=== PATIENT | male | born 1995 | race Two or more races ===

== ENCOUNTER 2017-01-18 23:39 | Emergency (ER) | payer MEDICAID, OTHER ==
[2017-01-19] MEDS ORDERED: HYDROCODONE/ACETAMINOPHEN 5-325 MG TABLET PO ONE (01:46)
--- NOTE | 2017-01-19 02:16 | ER Document Report ---
ED Extremity Problem, Upper - General Chief Complaint: Elbow Injury Stated Complaint: POSSIBLE ELBOW DISLOCATION Mode of Arrival: Ambulatory Information source: Patient TRAVEL OUTSIDE OF THE [place] IN LAST 30 DAYS: No - HPI Notes: Patient states he was wrestling with his brother earlier today when he was slammed to the ground and injured his left elbow. States that something popped and he felt like his elbow may have been dislocated. He states that he felt like he was able to get his elbow back into place. He continues to have pain in the left elbow. He denies any numbness tingling or weakness. He states that he has limited range of motion of left elbow due to pain. No fevers. No lacerations. No nausea, vomiting, diarrhea. No chest pain or shortness breath. He denies any other complaints at this moment. - Related Data Allergies/Adverse Reactions: No Known Allergies Allergy (Unverified 12/21/12 20:24) Past Medical History - Social History Smoking Status: Unknown if Ever Smoked Family History: None Patient has suicidal ideation: No Patient has homicidal ideation: No Pulmonary Medical History: Reports: Hx Asthma Renal/ Medical History: Denies: Hx Peritoneal Dialysis - Immunizations Immunizations up to date: Yes Hx Diphtheria, Pertussis, Tetanus Vaccination: Yes Review of Systems - Review of Systems -: Yes All other systems reviewed and negative Physical Exam - Vital signs Vitals: Temp Pulse Resp BP Pulse Ox 98.1 F 71 20 122/76 100 01/18/17 23:54 01/18/17 23:54 01/18/17 23:54 01/18/17 23:54 01/18/17 23:54 - Notes Notes: GENERAL: alert, cooperative, nontoxic, no distress. HEAD: normocephalic, atraumatic EYES: conjunctiva pink without discharge, no external redness or swelling. EARS: no external swelling, no external redness NOSE: atraumatic, no external swelling MOUTH/THROAT: mucous membranes moist and pink, posterior pharynx without erythema, swelling, exudate. No trismus or drooling. NECK: soft, supple, full range of motion, no meningismus. CHEST: no distress, lungs clear and equal throughout. No wheezing, rales, rhonchi. CARDIAC: regular rate and rhythm, no murmur, normal capillary refill, normal pulses. No peripheral edema noted. ABDOMEN: Soft, nontender. BACK: full range of motion, no CVA tenderness. NEURO: alert and oriented 3, no focal deficits, full range of motion of all extremities. PYSCH: appropriate mood, affect. Patient is cooperative. SKIN: pink, warm, dry, no rash. - Extremities Notes: Tenderness to palpation of the left elbow. Slight limited flexion and extension of the left elbow due to pain. No obvious deformity. Normal pulse and sensation distally. Minimal social exams unremarkable. Course - Re-evaluation Re-evalutation: 01/19/17 02:21 Patient is nontoxic and stable vitals. Patient did have an ulnar coronoid fracture. Patient's are grossly intact. Patient be placed in a sling for comfort. Follow-up with orthopedic next week. Follow up sooner for increased pain, fever, numbness, tingling, weakness or any further concerns. Compartments are soft at this time. Patient is neurovascularly intact. The patient is noted to have elevated blood pressure during today's emergency department visit. The patient was informed of this finding. The patient was instructed that this may be related to pre-hypertension and requires further evaluation with a primary care provider. The patient has no hypertensive symptoms at this time. The patient's emergency department workup and current diagnosis were explained to the patient and or family. Follow-up instructions were provided. Medications if prescribed were discussed. Instructions for when to return to the emergency department including specific worrisome symptoms were discussed with the patient and/or family. - Vital Signs Vital signs: Temp Pulse Resp BP Pulse Ox 98.1 F 71 20 122/76 100 01/18/17 23:54 01/18/17 23:54 01/18/17 23:54 01/18/17 23:54 01/18/17 23:54 - Diagnostic Test Radiology reviewed: Image reviewed, Reports reviewed - Or coronoid avulsion fracture Procedures - Additional Procedures sling Notes: 01/19/17 02:19 Sling applied to the left arm. Joint well aligned. Normal neurovascular exam distally. Discharge - Discharge Condition: Stable Disposition: HOME, SELF-CARE Instructions: Fracture ([facility]) Additional Instructions: Wear sling until you follow up with or throat. Ice or elbow. Follow up with or so next week. Take medications as prescribed. Follow-up sooner for increased pain, fever, numbness, tingling, weakness, any further concerns. Your blood pressure was elevated during today's visit. Have this rechecked with your doctor. The medication you were prescribed today may cause drowsiness. Do not drive or operate heavy machinery while taking this medication. Prescriptions: Hydrocodone/Acetaminophen [[place] 5-325 mg Tablet] 1 tab PO Q4 PRN #15 tablet PRN Reason: Forms: Elevated Blood Pressure Referrals: DARRYL CALDERON DO [ACTIVE STAFF] - Follow up as needed
[2017-01-19 04:02] VITALS: BP 118/72
== END 2017-01-19 04:03 | disposition home or self-care (01) ==
LOC: ER 23:39
DX: S52.045A Nondisplaced fracture of coronoid process of left ulna, initial encounter for closed fracture (principal); R03.0 Elevated blood-pressure reading, without diagnosis of hypertension; X58.XXXA Exposure to other specified factors, initial encounter; Y93.83 Activity, rough housing and horseplay
CPT/HCPCS: 99283

== ENCOUNTER 2017-10-16 10:40 | Emergency (ER) | payer MEDICAID, OTHER ==
--- NOTE | 2017-10-16 11:44 | ER Document Report ---
HPI - HPI Patient complains to provider of: left ear pain Pain Level: 3 Context: 22 yo male with left ear pain x 1 day. + URI symptoms last week. no fever Associated Symptoms: None Exacerbated by: Denies Relieved by: Denies Similar symptoms previously: No Recently seen / treated by doctor: No - ROS Systems Reviewed and Negative: Yes All other systems reviewed and negative - EENT EENT: REPORTS: Ear Pain Past Medical History - General Information source: Patient - Social History Smoking Status: Current Every Day Smoker Chew tobacco use (# tins/day): No Frequency of alcohol use: Heavy Drug Abuse: Marijuana Family History: None Patient has suicidal ideation: No Patient has homicidal ideation: No - Medical History Medical History: Negative Pulmonary Medical History: Reports: Hx Asthma Renal/ Medical History: Denies: Hx Peritoneal Dialysis - Immunizations Immunizations up to date: Yes Hx Diphtheria, Pertussis, Tetanus Vaccination: Yes Vertical Provider Document - CONSTITUTIONAL Agree With Documented VS: Yes Exam Limitations: No Limitations - INFECTION CONTROL TRAVEL OUTSIDE OF THE [place] IN LAST 30 DAYS: No - HEENT HEENT: Atraumatic, Tympanic Membrane Red - left - NECK Neck: Normal Inspection, Supple - RESPIRATORY Respiratory: Breath Sounds Normal, No Respiratory Distress - CARDIOVASCULAR Cardiovascular: Regular Rate, Regular Rhythm - NEURO Level of Consciousness: Awake, Alert, Appropriate - DERM Integumentary: Warm, Dry Discharge - Discharge Clinical Impression: Acute left otitis media Condition: Stable Disposition: HOME, SELF-CARE Instructions: Otitis Media ([facility]), Antibiotic Therapy ([facility]), Ibuprofen (General ) ([facility]) Additional Instructions: take meds as prescribed follow up with primary care if symptoms persist Prescriptions: Amoxicillin 500 mg PO TID #21 tablet Ibuprofen [Motrin 800 Mg Tablet] 800 mg PO Q6H #20 tablet Forms: Return to Work
== END 2017-10-16 11:45 | disposition home or self-care (01) ==
LOC: ER 10:40
DX: H66.92 Otitis media, unspecified, left ear (principal); H92.02 Otalgia, left ear; J45.909 Unspecified asthma, uncomplicated; F17.200 Nicotine dependence, unspecified, uncomplicated; F12.10 Cannabis abuse, uncomplicated
CPT/HCPCS: 99282

== ENCOUNTER 2018-04-18 13:15 | Emergency (ER) | payer OTHER ==
[2018-04-18] MEDS ORDERED: FAMOTIDINE 20 MG TABLET PO ONE (13:25)
[2018-04-18] MEDS ORDERED: METHYLPREDNISOLONE INJ 125 MG/2 ML SDV IV ONE (13:25)
[2018-04-18] MEDS ORDERED: DIPHENHYDRAMINE HCL 50 MG/ML VIAL IV ONE (13:25)
[2018-04-18] MEDS ORDERED: FAMOTIDINE INJ/PF 20 MG/2 ML SDV IV ONE (13:28)
--- NOTE | 2018-04-18 13:31 | ER Document Report ---
HPI - HPI Pain Level: 3 Notes: Patient is a 22-year-old male no significant past medical history who presents to the ED complaining of a wasp vs hornet sting to his upper lip about 1-1.5 hours ago. Patient states that he had initial swelling and took Benadryl. Patient states that his symptoms have improved, but does continue to have some swelling in his lip. Patient states that he does not have any severe allergy aside from localized swelling to the and wasp stings. Patient states that he is still eating and drinking without any difficulties. He has not had any trouble breathing or swallowing. Denies any drug allergies. No other concerns or complaints. Denies any headache, fever, head injury, neck pain, changes in vision/speech/mentation/hearing, swelling of tongue/throat, drooling, hoarseness , URI, sore throat, chest pain, palpitations, syncope, cough, shortness of breath, wheeze, dyspnea, abdominal pain, nausea/vomiting/diarrhea, urinary retention, dysuria, hematuria, loss of control of bowel or bladder, numbness/ tingling, saddle anesthesia, muscle paralysis/weakness, or rash. - ROS Systems Reviewed and Negative: Yes All other systems reviewed and negative Past Medical History - Social History Smoking Status: Current Every Day Smoker Family History: None Pulmonary Medical History: Reports: Hx Asthma Renal/ Medical History: Denies: Hx Peritoneal Dialysis - Immunizations Immunizations up to date: Yes Hx Diphtheria, Pertussis, Tetanus Vaccination: Yes Vertical Provider Document - CONSTITUTIONAL Agree With Documented VS: Yes Notes: PHYSICAL EXAMINATION: GENERAL: Well-appearing, well-nourished and in no acute distress. A&Ox4. Answers questions appropriately. Moves comfortably w/o notable distress HEAD: Atraumatic, normocephalic. EYES: Pupils equal round and reactive to light, extraocular movements intact, sclera anicteric, conjunctiva are normal. ENT: EAC clear b/l. TM's intact b/l without erythema, fluid, or perforation. Nares patent and with clear discharge. oropharynx no erythema without exudates. no tonsilar hypertrophy without erythema or exudate. No palatine shift. Uvula midline. No tongue protrusion. No drooling, hoarseness, or airway compromise. Moist mucous membranes. No sinus tenderness. + upper lip swelling (improved from pt's picture he brought with him during initial swelling prior to benadryl). No swelling of tongue/throat. NECK: Normal range of motion, supple without lymphadenopathy. No rigidity/ meningismus. LUNGS: Breath sounds clear to auscultation bilaterally and equal. No wheezes rales or rhonchi. No retractions HEART: Regular rate and rhythm without murmurs, rubs, gallops. NEUROLOGICAL: Normal speech, normal gait. PSYCH: Normal mood, normal affect. SKIN: Warm, Dry, normal turgor, no rashes or lesions noted. - INFECTION CONTROL TRAVEL OUTSIDE OF THE [place] IN LAST 30 DAYS: No Course - Re-evaluation Re-evalutation: 04/18/18 13:31 We will give him solumedrol 125, benadryl 25, and pepcid 20mg IV and monitor for another hour. 04/18/18 14:48 Patient is an afebrile, well-hydrated, 22-year-old male who presents to the ED with a hornet/wasp sting to the upper lip with associated swelling. Vitals are acceptable without any significant tachycardia, tachypnea, or hypoxia. PE is otherwise unremarkable. Patient was given Solu-Medrol, Benadryl, and Pepcid IV. Patient states that he is feeling much better and would like to go home. No other labs or imaging warranted at this time based on H&P. Patient to continue Benadryl and Pepcid at home. Low suspicion for any sepsis, meningitis , severe dehydration, respiratory compromise, or other systemic emergent condition at this time. Patient is aware that condition can change from initial presentation and he needs to monitor symptoms closely and seek medical attention with any acute changes. Conservative measures otherwise for symptoms. Recheck with your PCM in 2-3 days. Return to the ED with any worsening/concerning symptoms otherwise as reviewed in discharge. Patient is in agreement. - Vital Signs Vital signs: Temp Pulse Resp BP Pulse Ox 97.4 F 81 18 125/66 99 04/18/18 13:18 04/18/18 13:18 18 13:18 04/18/18 13:18 04/18/18 13:18 Discharge - Discharge Clinical Impression: Insect sting Qualifiers: Encounter type: initial encounter Injury intent: accidental or unintentional Qualified Code(s): T63.481A - Toxic effect of venom of other arthropod, accidental (unintentional), initial encounter Condition: Stable Disposition: HOME, SELF-CARE Additional Instructions: Keep the skin clean Wash with soap and water Tylenol/ibuprofen if needed Take medication as directed Monitor for any worsening symptoms Recheck with your PCM in 2-3 days Return to the ED with any worsening symptoms and/or development of fever, headache, chest pain, palpitations, syncope, shortness of breath, trouble breathing, abdominal pain, n/v/d, abscess, purulent discharge, red streaks, worsening swelling, or other worsening symptoms that are concerning to you. Prescriptions: Prednisone [Deltasone 20 mg Tablet] 3 tab PO DAILY 3 Days tablet Forms: Smoking Cessation Education Referrals: CLAYTON MACKENZIE MD [Primary Care Provider] - 04/21/18
[2018-04-18 15:13] VITALS: BP 112/54
== END 2018-04-18 15:14 | disposition home or self-care (01) ==
LOC: ER 13:15
DX: T63.481A Toxic effect of venom of other arthropod, accidental (unintentional), initial encounter (principal); R22.0 Localized swelling, mass and lump, head; F17.200 Nicotine dependence, unspecified, uncomplicated; J45.909 Unspecified asthma, uncomplicated; X58.XXXA Exposure to other specified factors, initial encounter
CPT/HCPCS: 99282; 96374; 96375; J1200; J2930; S0028

== ENCOUNTER 2019-01-14 22:54 | Emergency (ER) | payer OTHER ==
[2019-01-14 23:15] VITALS: BP 114/60
== END 2019-01-15 01:52 | disposition left against medical advice (07) ==
LOC: ER 22:54
DX: Z53.21 Procedure and treatment not carried out due to patient leaving prior to being seen by health care provider (principal)

== ENCOUNTER 2019-01-15 20:48 | Emergency (ER) | payer OTHER ==
--- NOTE | 2019-01-15 22:01 | ER Document Report ---
ED Medical Screen (RME) - General Chief Complaint: Flank Pain Stated Complaint: ABDOMINAL PAIN Time Seen by Provider: 01/15/19 21:52 Primary Care Provider: CLAYTON MACKENZIE MD [Primary Care Provider] - Follow up as needed Notes: 23-year-old male with chief complaint of abdominal pain, symptoms have been present for the past 4 days, pain located mainly on the right side, also radiates to the upper left. Denies nausea, vomiting, fever, flank pain. Just went to [place], had a CAT scan within the past 24 hours which was normal. Denies any surgeries. TRAVEL OUTSIDE OF THE [place] IN LAST 30 DAYS: No - Related Data Allergies/Adverse Reactions: No Known Allergies Allergy (Verified 01/14/19 23:13) Past Medical History - Social History Chew tobacco use (# tins/day): No Frequency of alcohol use: Occasional Drug Abuse: None Pulmonary Medical History: Reports: Hx Asthma Renal/ Medical History: Denies: Hx Peritoneal Dialysis - Immunizations Immunizations up to date: Yes Hx Diphtheria, Pertussis, Tetanus Vaccination: Yes Physical Exam - Abdominal Tenderness: Other - When I press in the upper abdomen he states that his symptoms feel improved. No noted pain on palpation. Unremarkable exam. Exam limited by sitting position. Course - Re-evaluation Re-evalutation: I have greeted and performed a rapid initial assessment of this patient. A comprehensive ED assessment and evaluation of the patient, analysis of test results and completion of the medical decision making process will be conducted by additional ED providers. Doctor's Discharge - Discharge Referrals: CLAYTON MACKENZIE MD [Primary Care Provider] - Follow up as needed
[2019-01-15 23:06] LABS: ABSOLUTE BASOPHILS # (AUTO) 0.1 10^3/uL (0.0-0.2); ABSOLUTE EOSINOPHILS # (AUTO) 0.4 10^3/uL (0.0-0.6); ABSOLUTE LYMPHOCYTES (AUTO) 2.4 10^3/uL (0.5-4.7); ABSOLUTE MONOCYTES (AUTO) 0.8 10^3/uL (0.1-1.4); ABSOLUTE NEUT (AUTO) 5.2 10^3/uL (1.7-8.2); BASOPHILS % (AUTO) 0.7 % (0-2); EOSINOPHILS % (AUTO) 4.7 % (0-6); HEMATOCRIT 46.2 % (37.9-51.0); LYMPHOCYTES % (AUTO) 26.9 % (13-45); MEAN CORPUSCULAR HEMOGLOBIN 32.2 pg (27.0-33.4); MEAN CORPUSCULAR HGB CONC 34.8 g/dL (32.0-36.0); MEAN CORPUSCULAR VOLUME 93 fl (80-97); MONOCYTES % (AUTO) 9.2 % (3-13); PLATELET COUNT 209 10^3/uL (150-450); RED BLOOD COUNT 4.99 10^6/uL (4.35-5.55); SEGMENTED NEUTROPHILS % (AUTO) 58.5 % (42-78); TOTAL CELLS COUNTED % (AUTO) 100 %; WHITE BLOOD COUNT 8.8 10^3/uL (4.0-10.5)
[2019-01-15 23:18] LABS: ALANINE AMINOTRANSFERASE 25 U/L (21-72); ALBUMIN 4.1 g/dL (3.5-5.0); ALKALINE PHOSPHATASE 90 U/L (38-126); ANION GAP 8 (5-19); ASPARTATE AMINO TRANSFERASE 26 U/L (17-59); BILIRUBIN,DIRECT 0.2 mg/dL (0.0-0.4); BILIRUBIN,TOTAL 0.4 mg/dL (0.2-1.3); BLOOD UREA NITROGEN 17 mg/dL (7-20); CALCIUM 9.6 mg/dL (8.4-10.2); CARBON DIOXIDE 27 mmol/L (22-30); CHLORIDE 105 mmol/L (98-107); GLUCOSE 91 mg/dL (75-110); LIPASE 43.5 U/L (23-300); POTASSIUM 4.7 mmol/L (3.6-5.0); TOTAL PROTEIN 6.9 g/dL (6.3-8.2)
[2019-01-15 23:22] LABS: APPEARANCE,URINE CLEAR; BILIRUBIN,URINE NEGATIVE (NEGATIVE); COLOR,URINE YELLOW; GLUCOSE, URINE NEGATIVE (NEGATIVE); KETONES,URINE NEGATIVE (NEGATIVE); LEUKOCYTE ESTERASE,URINE NEGATIVE (NEGATIVE); NITRITE,URINE NEGATIVE (NEGATIVE); PROTEIN,URINE NEGATIVE (NEGATIVE); URINE SPECIFIC GRAVITY 1.015; UROBILINOGEN,URINE NEGATIVE mg/dL (<2.0)
[2019-01-15] MEDS ORDERED: NORMAL SALINE 1000 ML 1,000 ML IV ONE (23:27)
[2019-01-15] MEDS ORDERED: KETOROLAC TROMETHAMINE 60 MG/2 ML SDV IM ONE (23:55)
[2019-01-15] MEDS ORDERED: DICYCLOMINE HCL INJ 20 MG/2 ML AMPULE IM ONE (23:55)
--- NOTE | 2019-01-16 | ER Document Report ---
ED General - General Chief Complaint: Flank Pain Stated Complaint: ABDOMINAL PAIN Time Seen by Provider: 01/15/19 21:52 Primary Care Provider: JANUSZ GOSS MD [ACTIVE STAFF] - Follow up in 3-5 days (gastroenterology ) CLAYTON MACKENZIE MD [Primary Care Provider] - Follow up in 3-5 days Notes: Patient is a 23 year old male that presents to the emergency department for chief complaint of right-sided abdominal pain. Patient reports his been having this pain on and off for the past 4 days, he says started on the right lower abdomen, working towards the right upper quadrant, then to the left side. He was seen at another institution emergency department earlier today, he states he had a CAT scan of his abdomen, as well as blood work, which she was told was all normal but he wanted to come here to be reevaluated. Denies any nausea, vomiting, diarrhea, constipation. Denies having any dysuria, hematuria. He currently rates his pain as a 8 out of 10 describes as an aching pain, but it is worse with walking. Past Medical History: Denies chronic medical conditions Past Surgical History: Denies surgical history Social History: Admits to smoking cigarettes and occasional alcohol use and occasional marijuana use. Family History: Reviewed and noncontributory for presenting illness Allergies: Reviewed, see documented allergy list. REVIEW OF SYSTEMS: Other than noted above, the 12 point review of systems was reviewed with the patient and were negative, all pertinent findings are included in the HPI. PHYSICAL EXAMINATION: Vital signs reviewed, nursing noted reviewed. GENERAL: Well-appearing, well-nourished and in no acute distress. HEAD: Atraumatic, normocephalic. EYES: Eyes appear normal, extraocular movements intact, sclera anicteric, conjunctiva are normal. ENT: nares patent, oropharynx clear without exudates. Moist mucous membranes. NECK: Normal range of motion, supple without lymphadenopathy LUNGS: Breath sounds clear to auscultation bilaterally and equal. No wheezes rales or rhonchi. HEART: Regular rate and rhythm without murmurs ABDOMEN: Soft, mild right upper quadrant tenderness to palpation, no right lower quadrant tenderness or left upper quadrant tenderness with palpation on my exam, negative McBurney's point tenderness, normoactive bowel sounds. No rebound, guarding, or rigidity. No masses appreciated. EXTREMITIES: Nontender, good range of motion, no pitting or edema. NEUROLOGICAL: No focal neurological deficits. Moves all extremities spontaneously Motor and sensory grossly intact on exam. PSYCH: Normal mood, normal affect. SKIN: Warm, Dry, normal turgor, no rashes or lesions noted on exposed skin TRAVEL OUTSIDE OF THE [place] IN LAST 30 DAYS: No - Related Data Allergies/Adverse Reactions: No Known Allergies Allergy (Verified 01/14/19 23:13) Past Medical History - Social History Smoking Status: Current Every Day Smoker Chew tobacco use (# tins/day): No Frequency of alcohol use: Occasional Drug Abuse: None Family History: None Patient has suicidal ideation: No Patient has homicidal ideation: No Pulmonary Medical History: Reports: Hx Asthma Renal/ Medical History: Denies: Hx Peritoneal Dialysis - Immunizations Immunizations up to date: Yes Hx Diphtheria, Pertussis, Tetanus Vaccination: Yes Physical Exam - Vital signs Vitals: Temp Pulse Resp BP Pulse Ox 98.1 F 55 L 14 111/70 100 01/16/19 01:19 01/16/19 01:19 01/16/19 01:19 01/16/19 01:19 01/16/19 01:19 Course - Re-evaluation Re-evalutation: Patient seen and examined vital signs reviewed. Laboratory data and/or imaging were ordered as appropriate for the patient's presenting symptoms and complaint, with consideration of any critical or life threatening conditions that may be associated with their obtained history and exam as noted above. Patient was treated with IM Bentyl and Toradol Results were reviewed when available and demonstrated unremarkable blood work and urinalysis The patient was re-evaluated and was stable, given the patient had recent CT imaging earlier in the day, that was reportedly negative, do not feel compelled to reimage this patient, I did do bedside ultrasound as noted, which was negative for any concerning findings of the gallbladder or liver, no hydronephrosis of the kidney Evaluation was most consistent with nonspecific abdominal pain, possible musculoskeletal, versus bowel spasm, will give the patient a prescription for Bentyl and have him follow-up with gastroenterology. Results were discussed with the patient at this point, after careful consideration I feel that that patient can be discharged from the emergency department, the patient was educated treatments and reasons to return to the emergency department based on their presumed diagnosis as noted above, they were advised to followup with a primary care physician in 2-3 days. Patient was agreeable to plan of care. *Note is created using voice recognition software and may contain spelling, syntax or grammatical errors. Laboratory 01/15/19 01/15/19 01/15/19 22:54 22:54 22:54 WBC 8.8 RBC 4.99 Hgb 16.0 Hct 46.2 MCV 93 MCH 32.2 MCHC 34.8 RDW 14.0 Plt Count 209 Seg Neutrophils % 58.5 Lymphocytes % 26.9 Monocytes % 9.2 Eosinophils % 4.7 Basophils % 0.7 Absolute Neutrophils 5.2 Absolute Lymphocytes 2.4 Absolute Monocytes 0.8 Absolute Eosinophils 0.4 Absolute Basophils 0.1 Sodium 140.0 Potassium 4.7 Chloride 105 Carbon Dioxide 27 Anion Gap 8 BUN 17 Creatinine 0.95 Est GFR ( Amer) > 60 Est GFR (Non-Af Amer) > 60 Glucose 91 Calcium 9.6 Total Bilirubin 0.4 Direct Bilirubin 0.2 Neonat Total Bilirubin Not Reportable Neonat Direct Bilirubin Not Reportable Neonat Indirect Bili Not Reportable AST 26 ALT 25 Alkaline Phosphatase 90 Total Protein 6.9 Albumin 4.1 Lipase 43.5 Urine Color YELLOW Urine Appearance CLEAR Urine pH 6.0 Ur Specific [place] 1.015 Urine Protein NEGATIVE Urine Glucose (UA) NEGATIVE Urine Ketones NEGATIVE Urine Blood NEGATIVE Urine Nitrite NEGATIVE Urine Bilirubin NEGATIVE Urine Urobilinogen NEGATIVE Ur Leukocyte Esterase NEGATIVE Urine WBC (Auto) 0 Urine RBC (Auto) 0 Urine Mucus (Auto) RARE Urine Ascorbic Acid NEGATIVE - Vital Signs Vital signs: Temp Pulse Resp BP Pulse Ox 98.1 F 55 L 14 111/70 100 01/16/19 01:19 01/16/19 01:19 01/16/19 01:19 01/16/19 01:19 01/16/19 01:19 - Laboratory Result Diagrams: 01/15/19 22:54 01/15/19 22:54 Procedures - Ultrasound/Bedside Ultrasound/Bedside Notes: BEDSIDE US LIMITED ABDOMINAL EXAM: Indication: Right upper quadrant abdominal pain Findings: Normal right upper quadrant ultrasound, liver appeared normal, no hydronephrosis of the kidney, gallbladder appeared normal in size. IVC was patent. No concerning findings. Images placed in the chart Discharge - Discharge Clinical Impression: Abdominal pain Qualifiers: Abdominal location: unspecified location Qualified Code(s): R10.9 - Unspecified abdominal pain Condition: Stable Disposition: HOME, SELF-CARE Instructions: Abdominal Pain ([facility]) Additional Instructions: Please return to the emergency department if you have any worsening, or concern of your symptoms. Please return to the emergency department if you develop chest pain, difficulty breathing, severe abdominal pain, or ongoing vomiting. Please follow-up with your primary care physician in 2-3 days and any other recommended physicians. If prescribed, take all medications as directed. If you have any questions or concerns do not hesitate to return the emergency department for evaluation. Prescriptions: Dicyclomine HCl [Bentyl 20 mg Tablet] 20 mg PO Q6H PRN #30 tablet PRN Reason: Abdominal Cramping Referrals: CLAYTON MACKENZIE MD [Primary Care Provider] - Follow up in 3-5 days JANUSZ GOSS MD [ACTIVE STAFF] - Follow up in 3-5 days (gastroenterology )
[2019-01-16 01:20] VITALS: BP 111/70
== END 2019-01-16 01:20 | disposition home or self-care (01) ==
LOC: ER 20:48
DX: R10.9 Unspecified abdominal pain (principal); F17.210 Nicotine dependence, cigarettes, uncomplicated
CPT/HCPCS: 99284; 96372; 36415; 83690; 85025; 80053; 81001; J0500; J1885

== ENCOUNTER 2019-01-23 10:10 | Emergency (ER) | payer OTHER ==
--- NOTE | 2019-01-23 10:25 | ER Document Report ---
ED Medical Screen (RME) - General Chief Complaint: Possible Kidney Stone Stated Complaint: FLANK PAIN Time Seen by Provider: 01/23/19 10:24 Primary Care Provider: CLAYTON MACKENZIE MD [Primary Care Provider] - Follow up as needed Mode of Arrival: Ambulatory Information source: Patient Notes: 23-year-old male presents to ED for right flank pain that is getting worse now is around to the front. He states his pain is also hurts. He states he is having frequent small amounts of urine and having sweats due to the pain. He states it feels like he is having a kidney stone. He states he does have some nausea. States he was here recently and sent home with Toradol and Bentyl which is not helping. Patient is alert oriented respirations regular and unlabored. He does have tenderness to the right flank. I have greeted and performed a rapid initial assessment of this patient. A comprehensive ED assessment and evaluation of the patient, analysis of test results and completion of medical decision making process will be conducted by an additional ED providers. TRAVEL OUTSIDE OF THE [place] IN LAST 30 DAYS: No - Related Data Allergies/Adverse Reactions: No Known Allergies Allergy (Verified 01/23/19 10:14) Past Medical History - Social History Frequency of alcohol use: Social Drug Abuse: Marijuana, Other Pulmonary Medical History: Reports: Hx Asthma Renal/ Medical History: Denies: Hx Peritoneal Dialysis - Immunizations Immunizations up to date: Yes Hx Diphtheria, Pertussis, Tetanus Vaccination: Yes Physical Exam - Vital signs Vitals: Temp Pulse Resp BP Pulse Ox 98.0 F 65 16 136/90 H 100 01/23/19 10:14 01/23/19 10:14 01/23/19 10:14 01/23/19 10:14 01/23/19 10:14 Course - Vital Signs Vital signs: Temp Pulse Resp BP Pulse Ox 98.0 F 65 16 136/90 H 100 01/23/19 10:14 01/23/19 10:14 01/23/19 10:14 01/23/19 10:14 01/23/19 10:14 Doctor's Discharge - Discharge Referrals: CLAYTON MACKENZIE MD [Primary Care Provider] - Follow up as needed
[2019-01-23 11:28] LABS: ABSOLUTE EOSINOPHILS # (AUTO) 0.6 10^3/uL (0.0-0.6); ABSOLUTE LYMPHOCYTES (AUTO) 1.6 10^3/uL (0.5-4.7); ABSOLUTE MONOCYTES (AUTO) 0.5 10^3/uL (0.1-1.4); ABSOLUTE NEUT (AUTO) 4.1 10^3/uL (1.7-8.2); BASOPHILS % (AUTO) 0.5 % (0-2); EOSINOPHILS % (AUTO) 8.1 % (0-6); HEMATOCRIT 48.7 % (37.9-51.0); HEMOGLOBIN 16.6 g/dL (13.5-17.0); LYMPHOCYTES % (AUTO) 23.9 % (13-45); MEAN CORPUSCULAR HEMOGLOBIN 31.3 pg (27.0-33.4); MEAN CORPUSCULAR HGB CONC 34.1 g/dL (32.0-36.0); MEAN CORPUSCULAR VOLUME 92 fl (80-97); MONOCYTES % (AUTO) 7.1 % (3-13); PLATELET COUNT 229 10^3/uL (150-450); RED BLOOD COUNT 5.31 10^6/uL (4.35-5.55); RED CELL DISTRIBUTION WIDTH 13.9 % (11.5-14.0); SEGMENTED NEUTROPHILS % (AUTO) 60.4 % (42-78); TOTAL CELLS COUNTED % (AUTO) 100 %; WHITE BLOOD COUNT 6.8 10^3/uL (4.0-10.5)
[2019-01-23 11:34] LABS: APPEARANCE,URINE CLEAR; BILIRUBIN,URINE NEGATIVE (NEGATIVE); COLOR,URINE YELLOW; GLUCOSE, URINE NEGATIVE (NEGATIVE); KETONES,URINE NEGATIVE (NEGATIVE); LEUKOCYTE ESTERASE,URINE NEGATIVE (NEGATIVE); NITRITE,URINE NEGATIVE (NEGATIVE); PROTEIN,URINE NEGATIVE (NEGATIVE); URINE SPECIFIC GRAVITY 1.012; UROBILINOGEN,URINE NEGATIVE mg/dL (<2.0)
[2019-01-23 11:48] LABS: ALANINE AMINOTRANSFERASE 20 U/L (21-72); ALBUMIN 4.4 g/dL (3.5-5.0); ALKALINE PHOSPHATASE 78 U/L (38-126); ANION GAP 9 (5-19); ASPARTATE AMINO TRANSFERASE 26 U/L (17-59); BILIRUBIN,DIRECT 0.2 mg/dL (0.0-0.4); BILIRUBIN,TOTAL 0.7 mg/dL (0.2-1.3); BLOOD UREA NITROGEN 12 mg/dL (7-20); CARBON DIOXIDE 28 mmol/L (22-30); CHLORIDE 103 mmol/L (98-107); GLUCOSE 87 mg/dL (75-110); POTASSIUM 4.8 mmol/L (3.6-5.0); SODIUM 140.2 mmol/L (137-145); TOTAL PROTEIN 7.3 g/dL (6.3-8.2)
--- NOTE | 2019-01-23 11:48 | RADIOLOGY REPORT (SQ) ---
EXAM DESCRIPTION: CT ABD/PELVIS NO ORAL OR IV COMPLETED DATE/TIME: 01/23/2019 11:24 am REASON FOR STUDY: Right flank pain COMPARISON: None. TECHNIQUE: CT scan of the abdomen and pelvis performed without intravenous or oral contrast. Images reviewed with lung, soft tissue, and bone windows. Reconstructed coronal and sagittal MPR images revi ewed. All images stored on PACS. All CT scanners at this facility use dose modulation, iterative reconstruction, and/or weight based d osing when appropriate to reduce radiation dose to as low as reasonably achievable (ALARA). [facility]: Dose Right [facility]: CareDose [facility]: Dose Right [facility]: Teradose 4D [facility]: Smart Spectrawatt RADIATION DOSE: CT Rad equipment meets quality standard of care and radiation dose reduction techniq ues were employed. CTDIvol: 4.8 mGy. DLP: 259 mGy-cm.mGy. LIMITATIONS: None. FINDINGS: LOWER CHEST: No significant findings. No nodules or infiltrates. NON-CONTRASTED LIVER, SPLEEN, ADRENALS: Evaluation limited by lack of IV contrast. No identified sign ificant masses. PANCREAS: No masses. No peripancreatic inflammatory changes. GALLBLADDER: No identified stones by CT criteria. No inflammatory changes to suggest cholecystitis. RIGHT KIDNEY AND URETER: No suspicious masses. Assessment limited by lack of IV contrast. No signif icant calcifications. No hydronephrosis or hydroureter. LEFT KIDNEY AND URETER: No suspicious masses. Assessment limited by lack of IV contrast. No signifi cant calcifications. No hydronephrosis or hydroureter. AORTA AND RETROPERITONEUM: No aneurysm. No retroperitoneal masses or adenopathy. BOWEL AND PERITONEAL CAVITY: No obvious masses or inflammatory changes. No free fluid. APPENDIX: Not clearly visualized. PELVIS, BLADDER, AND ABDOMINAL WALL:No abnormal masses. No free fluid. Bladder normal. BONES: No significant findings. OTHER: No other significant finding. IMPRESSION: No noncontrast CT findings to explain right lower quadrant or right flank pain. The tray endix is not clearly visualized. There are no obvious secondary inflammatory findings in the right l ower quadrant. There is no radiopaque urinary tract calculus or evidence of hydronephrosis. COMMENT: Quality ID # [id number]: Final reports with documentation of one or more dose reduction techniques (e.g., Automated exposure control, adjustment of the mA and/or kV according to patient size, use of iterative reconstruction technique) TECHNICAL DOCUMENTATION: JOB ID: [id number] [employer]- All Rights Reserved Reading location - IP/workstation name: [email or web address]
[2019-01-23] MEDS ORDERED: CEFTRIAXONE INJ 250 MG VIAL IM ONE (12:27)
[2019-01-23] MEDS ORDERED: AZITHROMYCIN 1 GM SUSP PACKET PO ONE (12:27)
[2019-01-23] MEDS ORDERED: METOCLOPRAMIDE HCL 10 MG TABLET PO ONE (12:27)
[2019-01-23] MEDS ORDERED: METRONIDAZOLE 500 MG TABLET PO ONE (12:27)
--- NOTE | 2019-01-23 12:41 | ER Document Report ---
ED General - General Chief Complaint: Possible Kidney Stone Stated Complaint: FLANK PAIN Time Seen by Provider: 01/23/19 10:24 Primary Care Provider: CLAYTON MACKENZIE MD [Primary Care Provider] - Follow up as needed Mode of Arrival: Ambulatory TRAVEL OUTSIDE OF THE [place] IN LAST 30 DAYS: No - HPI Notes: Patient coming in for dysuria and has been evaluated for this before. Patient states that pain ongoing for the last 24 to 48 hours states today increased pain after urination. Patient denies any penile discharge bumps or lumps on his penis. Patient states he is sexually active with multiple sexual partners. Patient states he is unaware of fevers been diagnosed with any STDs in the past. No recent STD testing here at [facility]. Patient otherwise denies fevers chills nausea vomiting diarrhea resting healthy upon my evaluation using his iPad. - Related Data Allergies/Adverse Reactions: No Known Allergies Allergy (Verified 01/23/19 10:14) Past Medical History - General Information source: Patient - Social History Smoking Status: Current Every Day Smoker Frequency of alcohol use: Social Drug Abuse: Marijuana, Other Family History: None Patient has suicidal ideation: No Patient has homicidal ideation: No Pulmonary Medical History: Reports: Hx Asthma Renal/ Medical History: Denies: Hx Peritoneal Dialysis - Immunizations Immunizations up to date: Yes Hx Diphtheria, Pertussis, Tetanus Vaccination: Yes Review of Systems - Review of Systems Constitutional: No symptoms reported EENT: No symptoms reported Cardiovascular: No symptoms reported Respiratory: No symptoms reported Gastrointestinal: Abdominal pain Genitourinary: No symptoms reported Male Genitourinary: No symptoms reported Musculoskeletal: No symptoms reported Skin: No symptoms reported Hematologic/Lymphatic: No symptoms reported Neurological/Psychological: No symptoms reported -: Yes All other systems reviewed and negative Physical Exam - Vital signs Vitals: Temp Pulse Resp BP Pulse Ox 98.0 F 65 16 136/90 H 100 01/23/19 10:14 01/23/19 10:14 01/23/19 10:14 01/23/19 10:14 01/23/19 10:14 Interpretation: Normal - General General appearance: Appears well, Alert - HEENT Head: Normocephalic, Atraumatic Eyes: Normal Pupils: PERRL - Respiratory Respiratory status: No respiratory distress Chest status: Nontender Breath sounds: Normal Chest palpation: Normal - Cardiovascular Rhythm: Regular Heart sounds: Normal auscultation Murmur: No - Abdominal Inspection: Normal Distension: No distension Bowel sounds: Normal Tenderness: Nontender Organomegaly: No organomegaly Notes: No tenderness to palpation on abdominal exam patient does have 2 freely mobile lymph nodes in the left inguinal region there is fluctuance - Genitourinary Inspection: Normal Tenderness: Nontender Cremasteric reflex: Normal Scrotum: Normal - Back Back: Normal, Nontender - Extremities General upper extremity: Normal inspection, Nontender, Normal color, Normal ROM, Normal temperature General lower extremity: Normal inspection, Nontender, Normal color, Normal ROM, Normal temperature, Normal weight bearing. No: William's sign - Neurological Neuro grossly intact: Yes Cognition: Normal Orientation: AAOx4 Nasreen Coma Scale Eye Opening: Spontaneous [place] Coma Scale Verbal: Oriented Nasreen Coma Scale Motor: Obeys Commands Nasreen Coma Scale Total: 15 Speech: Normal Motor strength normal: LUE, RUE, LLE, RLE Sensory: Normal - Psychological Associated symptoms: Normal affect, Normal mood - Skin Skin Temperature: Warm Skin Moisture: Dry Skin Color: Normal Course - Re-evaluation Re-evalutation: 01/23/19 12:38 Laboratory studies urinalysis and CT scan the patient's abdomen does not show any allergy no signs of kidney stones or any worrisome pathology. Given oneyda ent's history of multiple sexual partners I am concerned that patient may have underlying STDs. Unfortunately STD testing was not done in the triage area. We will contact lab to see the patient can have a dirty urine performed at this time is that ER to give a urinalysis if he cannot we will swab the patient we will go ahead and empirically treat the patient for gonorrhea chlamydia and trichomonas with Rocephin and azithromycin and Flagyl. Patient is to refrain from sex for the next 2 weeks. The patient presents with abdominal pain without signs of peritonitis or other life-threatening or serious etiology. The patient appears stable for discharge and has been instructed to return immediately if the symptoms worsen in any way, or in 8-12hr if not improved for re-evaluation. The patient has been instructed to return if the symptoms worsen or change in any way. - Vital Signs Vital signs: Temp Pulse Resp BP Pulse Ox 98.0 F 65 19 106/64 99 01/23/19 10:14 01/23/19 10:14 01/23/19 11:50 01/23/19 11:50 01/23/19 11:50 - Laboratory Result Diagrams: 01/23/19 11:05 01/23/19 11:05 Laboratory results interpreted by me: 01/23/19 01/23/19 11:05 11:05 Eosinophils % 8.1 H ALT 20 L Discharge - Discharge Clinical Impression: Abdominal pain Qualifiers: Abdominal location: generalized Qualified Code(s): R10.84 - Generalized abdominal pain Condition: Good Disposition: HOME, SELF-CARE Instructions: Abdominal Pain ([facility]) Additional Instructions: Your CT scan laboratory studies today do not show any critical pathology for your abdominal pain. Because of your history of multiple sexual partners I am concerned she may have underlying STDs such as gonorrhea chlamydia or trichomonas. You were empirically treated today for gonorrhea chlamydia and trichomonas with Rocephin and azithromycin and Flagyl. Is very important that you refrain from having any sex for the next 2 weeks. Your results from your STD testing will be available tomorrow and have suggest calling the ER during normal business hours a day 5 to obtain your STD testing results. Prescriptions: Ibuprofen [Motrin 600 mg Tablet] 600 mg PO Q8HP PRN #21 tablet PRN Reason: Referrals: CLAYTON MACKENZIE MD [Primary Care Provider] - Follow up as needed
[2019-01-23 13:46] VITALS: BP 111/74
[2019-01-23 14:25] LABS: CHLAM PCR NOT DETECTED (NOT DETECT); GON PCR NOT DETECTED (NOT DETECT)
== END 2019-01-23 13:44 | disposition home or self-care (01) ==
LOC: ER 10:10
DX: R10.84 Generalized abdominal pain (principal); R30.0 Dysuria; F17.200 Nicotine dependence, unspecified, uncomplicated; F12.10 Cannabis abuse, uncomplicated; J45.909 Unspecified asthma, uncomplicated; Z20.2 Contact with and (suspected) exposure to infections with a predominantly sexual mode of transmission
CPT/HCPCS: 99284; 96372; 36415; 85025; 80053; 81001; 87491; 87591; 74176; Q0144; J0696

== ENCOUNTER 2019-03-14 22:57 | Emergency (ER) | payer OTHER ==
--- NOTE | 2019-03-15 01:33 | ER Document Report ---
HPI - HPI Time Seen by Provider: 03/15/19 00:37 Pain Level: 4 Context: Patient is a 23-year-old male that comes to the emergency department for chief complaint of a discomfort at the end of his penis, he states that he noticed this earlier, he states it appeared red, inflamed, swollen. He states he also seemed like he had urinary hesitancy although he denies discharge, dysuria. He denies trauma, rash, testicular pain, groin or abdominal pain. He states he was treated a couple of months ago for gonorrhea and chlamydia along with coverage with Flagyl, he states he has not been sexually active since that time. He denies any daily medications or diagnosed medical problems. Past Medical History - General Information source: Patient - Social History Smoking Status: Current Every Day Smoker Frequency of alcohol use: Occasional Drug Abuse: Marijuana Lives with: Alone Family History: None Pulmonary Medical History: Reports: Hx Asthma Renal/ Medical History: Denies: Hx Peritoneal Dialysis - Immunizations Immunizations up to date: Yes Hx Diphtheria, Pertussis, Tetanus Vaccination: Yes Vertical Provider Document - CONSTITUTIONAL General Appearance: WD/WN, No Apparent Distress - INFECTION CONTROL TRAVEL OUTSIDE OF THE [place] IN LAST 30 DAYS: No - HEENT HEENT: Atraumatic, Normal ENT Exam, Normocephalic - NECK Neck: Normal Inspection - RESPIRATORY Respiratory: Breath Sounds Normal, No Respiratory Distress - CARDIOVASCULAR Cardiovascular: Regular Rate, Regular Rhythm - GI/ABDOMEN Gastrointestinal: Abdomen Soft, Abdomen Non-Tender - REPRODUCTIVE Male Genitalia: negative: Normal Inspection - There is mild erythema to the tip of the penis suggestive of minimal trauma versus irritation, however there is no swelling, induration, concerning erythema, fluctuance, noted tenderness, discharge, or other abnormality. Normal testicular exam, normal groin and abdominal exam. Mary Jane MILLER present during exam. - BACK Back: Normal Inspection - MUSCULOSKELETAL/EXTREMETIES Musculoskeletal/Extremeties: MAEW, FROM, Non-Tender - NEURO Level of Consciousness: Awake, Alert, Appropriate Motor/Sensory: No Motor Deficit, No Sensory Deficit - DERM Integumentary: Warm, Dry, No Rash Course - Re-evaluation Re-evalutation: Physical examination shows irritation at the tip of the head of the penis. However there is no rash, sore, vesicle, swelling, induration, fluctuance, or concerning finding. Physical examination is otherwise unremarkable. Patient reports he is not sexually active right now. Urinalysis actually does show hematuria. Gonorrhea and Chlamydia are still pending. I discussed with patient. Records show that he has had a CAT scan recently which did not show kidney stones or concerning finding. Patient states he had one previously that also did not show a kidney stone, he has no symptoms suggesting passing ureterolithiasis. Appears to be irritation/mild trauma to the end of the penis with some microscopic hematuria but no gross hematuria. I discussed options with patient. Recommendation will be for him to follow-up with primary care, get a recheck of the urinalysis, and potentially urology referral afterwards. I discussed strict return precautions in detail as well. Patient states satisfaction and agreement with plan. - Vital Signs Vital signs: Temp Pulse Resp BP Pulse Ox 98.4 F 101 H 20 131/74 H 96 03/14/19 23:17 03/14/19 23:17 03/14/19 23:17 03/14/19 23:17 03/14/19 23:17 Discharge - Discharge Clinical Impression: Penis pain, Wheezing, Tobacco abuse Hematuria Qualifiers: Hematuria type: unspecified type Qualified Code(s): R31.9 - Hematuria, unspecified Condition: Stable Disposition: HOME, SELF-CARE Additional Instructions: Your blood does show urine. You do need a repeat urinalysis to make sure this is cleared, if not you need to be following up with the urology referral listed below. Stop smoking. Take inhaler as prescribed. The area over the genitals appears to be irritation/abrasion, this should resolve with time. No infection is seen in the urine but we do have a urine culture and you will be contacted for any concerning findings. Return for any concerning or worsening symptoms including swelling of the area, abdominal or flank pain, vomiting, fever, or any other concerning symptoms. Referrals: [facility] [Provider Group] - Follow up in 1 week [facility] [Provider Group] - Follow up as needed
[2019-03-15 01:34] LABS: APPEARANCE,URINE SLIGHTLY-CLOUDY; BILIRUBIN,URINE NEGATIVE (NEGATIVE); CALCIUM OXALATE CRYSTALS,URINE FEW /HPF; COLOR,URINE YELLOW; GLUCOSE, URINE NEGATIVE (NEGATIVE); KETONES,URINE NEGATIVE (NEGATIVE); LEUKOCYTE ESTERASE,URINE NEGATIVE (NEGATIVE); NITRITE,URINE NEGATIVE (NEGATIVE); PROTEIN,URINE NEGATIVE (NEGATIVE); URINE SPECIFIC GRAVITY 1.024; UROBILINOGEN,URINE NEGATIVE mg/dL (<2.0)
[2019-03-15] MEDS ORDERED: ALBUTEROL SULFATE HFA (90 MCG/PUFF) 8 GM MDI (1 MDI/ER DISP) IH ONE (01:59)
[2019-03-15 02:20] VITALS: BP 129/70
[2019-03-15 03:17] LABS: CHLAM PCR NOT DETECTED (NOT DETECT); GON PCR NOT DETECTED (NOT DETECT)
== END 2019-03-15 02:09 | disposition home or self-care (01) ==
LOC: ER 22:57
DX: N48.89 Other specified disorders of penis (principal); R06.2 Wheezing; R31.9 Hematuria, unspecified; F17.200 Nicotine dependence, unspecified, uncomplicated
CPT/HCPCS: 99283; 81001; 87491; 87591; J3490